=== PATIENT | female | born 1990 | race Caucasian/White ===

== ENCOUNTER 2020-08-28 03:52 | Emergency (ER) | payer SELFPAY ==
[~2020-08-28] VITALS: Ht 157.5 cm; Wt 88.0 kg
[2020-08-28] MEDS ORDERED: MORPHINE SULFATE 4 MG/ML CPJ (NOT FOR IM USE) IV STA (04:36)
[2020-08-28] MEDS ORDERED: ONDANSETRON HCL 4MG/2ML INJ IV STA (04:36)
[2020-08-28] MEDS ORDERED: FAMOTIDINE 20MG/2ML VIAL IV STA (04:36)
[2020-08-28] MEDS ORDERED: SODIUM CHLORIDE 0.9% 1,000 ML IV ONE (04:45)
[2020-08-28 05:10] LABS: BASOPHILS % 0.5 % (0.0-2.0); EOSINOPHILS % 1.2 % (0.0-5.0); HEMATOCRIT. 37.6 % (36.0-48.0); HEMOGLOBIN. 12.6 g/dL (12.0-16.0); LYMPHOCYTES % 24.1 % (20.0-50.0); MEAN CORPUSCULAR HEMOGLOBIN 29.3 pg (28.0-32.0); MEAN CORPUSCULAR VOLUME 87.7 fL (81.0-99.0); MEAN PLATELET VOLUME 7.9 fl (7.4-10.4); MONOCYTES % 5.5 % (2.0-8.0); NEUTROPHILS % 68.7 % (40.0-76.0); PLATELET 228 x1000/uL (130-400); RED BLOOD CELL COUNT 4.29 mill/uL (4.2-5.4); RED CELL DISTRIBUTION WIDTH 13.4 % (11.6-14.6)
[2020-08-28 05:14] LABS: CHLORIDE 108 mEq/L (98-107)
[2020-08-28 05:31] LABS: HCG SCREEN NEGATIVE
[2020-08-28] MEDS ORDERED: IBUP-2029 MT (06:49)
[2020-08-28] MEDS ORDERED: ONDA4TAB5 MT (06:49)
[2020-08-28 06:58] VITALS: BP 137/86
== END 2020-08-28 07:00 | disposition home or self-care (01) ==
LOC: ER 03:52
DX: R10.13 Epigastric pain (principal); R11.2 Nausea with vomiting, unspecified
CPT/HCPCS: 36415; 76705; 80053; 81025; 83690; 84703; 85025; 93005; 96361; 96374; 96375; 99285; J2270; J2405; J3490; J7030